=== PATIENT | female | born 1960 | race Caucasian/White ===

== ENCOUNTER 2018-07-19 07:54 | Outpatient (CLI) | payer OTHER, MEDICAID ==
[~2018-07-19 07:54] MED LIST: AUSTEDO PO; BUSP10TA3 PO; COG1 PO; GABA-531 PO; GABA-533 PO; LITH300C2 PO; LURA40TA PO; QUET300T2 PO
== END 2018-07-19 20:52 | disposition home or self-care (01) ==
LOC: SCT 07:54
PROVIDERS: ATTEND Urology Pediatric Urology
DX: N13.30 Unspecified hydronephrosis (principal); N20.0 Calculus of kidney